=== PATIENT | male | born 1970 | race Caucasian/White ===

== ENCOUNTER 2018-05-18 08:23 | Emergency (ER) | payer OTHER ==
[2018-05-18] MEDS ORDERED: Sodium Chloride 0.9% 1000 ML 1,000 ML IV STA ×2 (08:48→10:17)
[2018-05-18] MEDS ORDERED: Sodium Chloride 0.9% 1000 ML 1,000 ML ONE ×2 (08:56→10:21)
--- NOTE | 2018-05-18 09:03 | ERPHSYRPT ---
- History of Present Illness Time Seen by Provider: 05/18/18 08:35 Source: patient Exam Limitations: clinical condition Patient Subjective Stated Complaint: Headache, chills, general weakness, abdominal pain Triage Nursing Assessment: Pt presents to the ED with complaints of headache, body aches, general weakness, anxiety, abdominal pain, and dizziness. Pt states abdominal pain was first to start, began approximately 1 week ago. No distress noted, skin pwd, pt is A&O x4. Physician History: PATIENT WITH A HISTORY OF ANXIETY, CHRONIC SHOULDER PAIN, AND HYPERTENSION COMPLAINS OF WEAKNESS, DIZZINESS, SHAKES AFTER HIS NORCO AND XANAX RAN OUT 4-5 DAYS AGO. HAS BEEN RELEASED FROM HIS PRIMARY CARE PROVIDER PRACTICE AND HAS BEEN TAKING HIS FRIENDS NORCO AND STREET XANAX OVER THE PAST WEEK. PATIENT HAS NUMEROUS OTHER COMPLAINTS, HEADACHE , ABDOMINAL PAIN, SHOULDER PAIN. DENIES BLURRED VISION, NAUSEA, EMESIS, DIARRHEA, CHEST PAIN, DIAPHORESIS AND PALPITATIONS. Timing/Duration: day(s) Severity: moderate Modifying Factors: Improves With: medication (RAN OUT) Associated Symptoms: weakness Allergies/Adverse Reactions: No Known Drug Allergies Allergy (Verified 05/18/18 08:33) Hx Tetanus, Diphtheria Vaccination/Date Given: Yes Hx Influenza Vaccination/Date Given: Yes Hx Pneumococcal Vaccination/Date Given: No Immunizations Up to Date: Yes - Review of Systems Constitutional: Weakness, No Fever, No Chills Eyes: No Symptoms Ears, Nose, & Throat: No Symptoms Respiratory: No Symptoms, No Cough, No Dyspnea Cardiac: No Symptoms, No Chest Pain, No Edema, No Syncope Abdominal/Gastrointestinal: Abdominal Pain, No Nausea, No Vomiting, No Diarrhea Genitourinary Symptoms: No Dysuria Musculoskeletal: No Back Pain, No Neck Pain Skin: No Rash Neurological: Dizziness, Other (ANXIETY), No Focal Weakness, No Sensory Changes Psychological: No Symptoms Endocrine: No Symptoms All Other Systems: Reviewed and Negative - Past Medical History Pertinent Past Medical History: Yes Neurological History: No Pertinent History ENT History: No Pertinent History Cardiac History: Hypertension Respiratory History: No Pertinent History Endocrine Medical History: No Pertinent History Musculoskeletal History: No Pertinent History GI Medical History: No Pertinent History History: No Pertinent History Psycho-Social History: No Pertinent History Male Reproductive Disorders: No Pertinent History - Past Surgical History Past Surgical History: No Neuro Surgical History: No Pertinent History Cardiac: No Pertinent History Respiratory: No Pertinent History Gastrointestinal: No Pertinent History Genitourinary: No Pertinent History Musculoskeletal: No Pertinent History Male Surgical History: No Pertinent History - Social History Smoking Status: Current every day smoker How long have you smoked: 16 years Exposure to second hand smoke: Yes Drug Use: narcotics Patient Lives Alone: No - Nursing Vital Signs Nursing Vital Signs: Initial Vital Signs Temperature 98.5 F 05/18/18 08:27 Pulse Rate 115 H 05/18/18 08:27 Respiratory Rate 16 05/18/18 08:27 Blood Pressure 145/98 05/18/18 08:27 O2 Sat by Pulse Oximetry 95 05/18/18 08:27 Pain Scale Pain Intensity 0 - Physical Exam General Appearance: no apparent distress, alert, anxiety, other (ALERT AND APPROPRIATE APPEARS IN NO DISTRESS) Eye Exam: PERRL/EOMI, eyes nml inspection Ears, Nose, Throat Exam: normal ENT inspection, TMs normal, pharynx normal, moist mucous membranes Neck Exam: normal inspection, non-tender, supple, full range of motion Respiratory Exam: normal breath sounds, lungs clear, No respiratory distress Cardiovascular Exam: regular rate/rhythm, normal heart sounds, normal peripheral pulses, tachycardia Gastrointestinal/Abdomen Exam: soft, normal bowel sounds, No tenderness, No mass Back Exam: normal inspection, normal range of motion, No CVA tenderness, No vertebral tenderness Extremity Exam: normal inspection, normal range of motion, pelvis stable Neurologic Exam: alert, oriented x 3, cooperative, normal mood/affect, nml cerebellar function, nml station & gait, sensation nml, No motor deficits Skin Exam: normal color, warm, dry, No rash Lymphatic Exam: No adenopathy SpO2 Interpretation: normal SpO2: 95 Oxygen Delivery: Room Air - Course EKG Interpreted by Me: RATE, Sinus Rhythm (RATE OF 94, NO ECTOPY OR ISCHEMIC CHANGES), NORMAL AXIS Ordered Tests: Active Orders 24 hr Category Date Time Status EKG-ER Only STAT Care 05/18/18 08:48 Active BMP Stat Lab 05/18/18 09:00 Completed CBC W DIFF Stat Lab 05/18/18 09:00 Completed Urine Triage Profile Stat Lab 05/18/18 11:30 Completed Medication Summary Discontinued Medications Generic Name Dose Route Start Last Admin Trade Name Freq PRN Reason Stop Dose Admin Hydroxyzine HCl 25 mg 05/18/18 10:30 05/18/18 10:33 Atarax 25 Mg PO 05/18/18 10:31 25 mg STAT ONE Administration Hydroxyzine HCl Confirm 05/18/18 10:32 Atarax 25 Mg Administered 05/18/18 10:33 Dose 25 mg .ROUTE .STK-MED ONE Sodium Chloride 1,000 mls @ 999 mls/hr 05/18/18 08:48 05/18/18 08:57 Sodium Chloride 0.9% 1000 Ml IV 05/18/18 09:48 999 mls/hr .Q1H1M STA Administration Sodium Chloride Confirm 05/18/18 08:56 Sodium Chloride 0.9% 1000 Ml Administered 05/18/18 08:57 Dose 1,000 mls @ ud .ROUTE .STK-MED ONE Sodium Chloride 1,000 mls @ 999 mls/hr 05/18/18 10:17 05/18/18 10:24 Sodium Chloride 0.9% 1000 Ml IV 05/18/18 11:17 999 mls/hr .Q1H1M STA Administration Sodium Chloride Confirm 05/18/18 10:21 Sodium Chloride 0.9% 1000 Ml Administered 05/18/18 10:22 Dose 1,000 mls @ ud .ROUTE .STK-MED ONE Lab/Rad Data: Laboratory Result Diagrams 05/18/18 09:00 05/18/18 09:00 Laboratory Results 05/18/18 05/18/18 05/18/18 Range/Units 11:30 09:00 09:00 WBC 11.1 H (4.0-10.5) K/mm3 RBC 5.13 (4.1-5.6) M/mm3 Hgb 14.9 (12.5-18.0) gm/dl Hct 45.0 (42-50) % MCV 87.7 (78-100) fl MCH 29.0 (26-32) pg MCHC 33.1 (32-36) g/dl RDW 14.4 H (11.5-14.0) % Plt Count 360 (150-450) K/mm3 MPV 9.5 (6-9.5) fl Gran % 71.7 H (36.0-66.0) % Eos # (Auto) 0.05 (0-0.5) Absolute Lymphs (auto) 2.26 (1.0-4.6) Absolute Monos (auto) 0.75 (0.0-1.3) Lymphocytes % 20.5 L (24.0-44.0) % Monocytes % 6.8 (0.0-12.0) % Eosinophils % 0.5 (0.00-5.0) % Basophils % 0.5 (0.0-0.4) % Absolute Granulocytes 7.93 H (1.4-6.9) Basophils # 0.06 (0-0.4) Sodium 140 (137-145) mmol/L Potassium 3.8 (3.5-5.1) mmol/L Chloride 104 (98-107) mmol/L Carbon Dioxide 26 (22-30) mmol/L Anion Gap 13.5 (5-15) MEQ/L BUN 13 (9-20) mg/dL Creatinine 0.84 (0.66-1.25) mg/dL Estimated GFR > 60.0 ML/MIN Glucose 127 H (74-106) mg/dL Calcium 9.6 (8.4-10.2) mg/dL Urine Opiates Level POSITIVE (NEGATIVE) Ur Methadone NEGATIVE (NEGATIVE) Urine Barbiturates NEGATIVE (NEGATIVE) Ur Phencyclidine (PCP) NEGATIVE (NEGATIVE) Urine Amphetamine NEGATIVE (NEGATIVE) U Benzodiazepine Level NEGATIVE (NEGATIVE) Urine Cocaine NEGATIVE (NEGATIVE) Urine Marijuana (THC) NEGATIVE (NEGATIVE) - Progress Progress: improved Progress Note: 05/18/18 09:04 ADMINISTERED IV NORMAL SALINE 1000ML/HR, ATARAX 25MG ORALLY, THE URINE TRIAGE POSITIVE FOR OPIATES 05/18/18 11:49 Counseled pt/family regarding: lab results, diagnosis, need for follow-up - Departure Time of Disposition: 11:55 Departure Disposition: Home Clinical Impression: MEDICATION WITHDRAWAL, Chronic right shoulder pain Condition: Stable Critical Care Time: No Referrals: VITA ARGUETA MD [ACTIVE STAFF] - Additional Instructions: ATARAX 25MG EVERY 6 HOURS NEEDED FOR ANXIETY. PERCOGESIC EVERY 4 HOURS NEEDED FOR PAIN. OBTAIN A PRIMARY CARE PROVIDER TODAY TO SCHEDULE APPOINTMENT. PERCOGESIC EVERY 4 HOURS NEEDED FOR PAIN. Prescriptions: Hydroxyzine HCl 25 mg [Atarax 25 mg] 25 mg PO Q6H PRN PRN #15 tablet PRN Reason: Anxiety Acetaminophen/Diphenhydramine [Percogesic 325-12.5 mg Tablet] 1 each PO Q4- 6HPRN PRN #15 tablet PRN Reason: Pain
[2018-05-18 09:07] LABS: BASOPHIL % 0.5 % (0.0-0.4); Basophil (Absolute #) 0.06 (0-0.4); Eosinophil % 0.5 % (0.00-5.0); Eosinophil (Absolute #) 0.05 (0-0.5); Granulocyte Absolute (ANC) 7.93 (1.4-6.9); Granulocytes % 71.7 % (36.0-66.0); Hemoglobin 14.9 gm/dl (12.5-18.0); Lymphocyte (Absolute #) 2.26 (1.0-4.6); Lymphocytes % 20.5 % (24.0-44.0); Mean Cell Volume 87.7 fl (78-100); Mean Corpuscular Hgb Concent. 33.1 g/dl (32-36); Mean Platelet Volume 9.5 fl (6-9.5); Monocyte (Absolute #) 0.75 (0.0-1.3); Monocytes % 6.8 % (0.0-12.0); Platelet Count 360 K/mm3 (150-450); Red Blood Count 5.13 M/mm3 (4.1-5.6); Red Cell Distribution Width 14.4 % (11.5-14.0); White Blood Count 11.1 K/mm3 (4.0-10.5)
[2018-05-18 09:34] LABS: ANION GAP 13.5 MEQ/L (5-15); BLOOD UREA NITROGEN 13 mg/dL (9-20); CHLORIDE 104 mmol/L (98-107); Calcium 9.6 mg/dL (8.4-10.2); Carbon Dioxide 26 mmol/L (22-30); Creatinine 1 0.84 mg/dL (0.66-1.25); Glucose 127 mg/dL (74-106); Potassium 3.8 mmol/L (3.5-5.1); SODIUM 140 mmol/L (137-145)
[2018-05-18] MEDS ORDERED: ATARAX 25 MG PO ONE (10:30)
[2018-05-18] MEDS ORDERED: ATARAX 25 MG ONE (10:32)
[2018-05-18 11:44] LABS: Amphetamine,Urine NEGATIVE (NEGATIVE); Barbiturate,Urine NEGATIVE (NEGATIVE); Benzodiazepine,Urine NEGATIVE (NEGATIVE); Cocaine,Urine NEGATIVE (NEGATIVE); Methadone,Urine NEGATIVE (NEGATIVE); Opiate,Urine POSITIVE (NEGATIVE); PCP,Urine NEGATIVE (NEGATIVE); THC,Urine NEGATIVE (NEGATIVE)
[2018-05-18 12:02] VITALS: BP 118/70; PULSE 60; O2SAT 98
== END 2018-05-18 12:03 | disposition home or self-care (01) ==
LOC: ED 08:23
DX: F15.93 Other stimulant use, unspecified with withdrawal (principal); M25.511 Pain in right shoulder; R53.1 Weakness; R42 Dizziness and giddiness; R51 Headache; R10.9 Unspecified abdominal pain
CPT/HCPCS: 36415; 80048; 80307; 85025; 93005; 96360; 99284; A9270-GY

== ENCOUNTER 2019-07-29 13:57 | Emergency (ER) | payer OTHER ==
[2019-07-29 14:13] VITALS: BP 116/73; PULSE 90; O2SAT 95
[2019-07-29] MEDS ORDERED: solu-CORTEF 250MG IV STA (14:26)
[2019-07-29] MEDS ORDERED: BENADRYL 50 MG/ML IM ONE (14:27)
[2019-07-29] MEDS ORDERED: solu-CORTEF 250MG IM ONE (14:29)
--- NOTE | 2019-07-29 14:34 | ERPHSYRPT ---
- History of Present Illness Time Seen by Provider: 07/29/19 14:29 Source: patient Exam Limitations: no limitations Patient Subjective Stated Complaint: Pt began swelling in bilateral eyes about 2 weeks ago and thinks that gnats bit him, has hives on right upper side of back , lips swollen, states that he has been hoarse and has a slight sore throat, denies swallowing or breathing difficulty Triage Nursing Assessment: Pt walked into the ER, vitals wnl, pulses normal, denies pain, doesn't appear to be in any distress. Physician History: Pt began swelling in bilateral eyes about 2 weeks ago and thinks that gnats bit him, has hives on right upper side of back, lips swollen, states that he has been hoarse and has a slight sore throat, denies swallowing or breathing difficulty, Unable to pinpoint the allergic cause Timing/Duration: week(s) Associated Symptoms: rash, other (lip swelling), No shortness of breath, No headaches Allergies/Adverse Reactions: No Known Drug Allergies Allergy (Verified 07/29/19 14:13) Hx Tetanus, Diphtheria Vaccination/Date Given: Yes Hx Influenza Vaccination/Date Given: Yes Hx Pneumococcal Vaccination/Date Given: No - Review of Systems Constitutional: No Fever, No Chills Eyes: No Symptoms Ears, Nose, & Throat: Throat Pain, Other (lip swelling) Respiratory: No Cough, No Dyspnea Cardiac: No Chest Pain, No Edema, No Syncope Abdominal/Gastrointestinal: No Abdominal Pain, No Nausea, No Vomiting, No Diarrhea Genitourinary Symptoms: No Dysuria Musculoskeletal: No Back Pain, No Neck Pain Skin: Rash Neurological: No Dizziness, No Focal Weakness, No Sensory Changes Psychological: No Symptoms Endocrine: No Symptoms All Other Systems: Reviewed and Negative - Past Medical History Pertinent Past Medical History: Yes Neurological History: No Pertinent History ENT History: No Pertinent History Cardiac History: Hypertension Respiratory History: No Pertinent History Endocrine Medical History: No Pertinent History Musculoskeletal History: No Pertinent History GI Medical History: No Pertinent History History: No Pertinent History Psycho-Social History: No Pertinent History Male Reproductive Disorders: No Pertinent History - Past Surgical History Past Surgical History: No Neuro Surgical History: No Pertinent History Cardiac: No Pertinent History Respiratory: No Pertinent History Gastrointestinal: No Pertinent History Genitourinary: No Pertinent History Musculoskeletal: No Pertinent History Male Surgical History: No Pertinent History - Social History Smoking Status: Current every day smoker How long have you smoked: 16 years Exposure to second hand smoke: Yes Drug Use: none Patient Lives Alone: No - Nursing Vital Signs Nursing Vital Signs: Initial Vital Signs Temperature 97.7 F 07/29/19 14:03 Pulse Rate 90 07/29/19 14:03 Blood Pressure 116/73 07/29/19 14:03 O2 Sat by Pulse Oximetry 95 07/29/19 14:03 Pain Scale Pain Intensity 0 - Physical Exam General Appearance: no apparent distress, alert Eye Exam: PERRL/EOMI, eyes nml inspection Ears, Nose, Throat Exam: normal ENT inspection, TMs normal, pharynx normal, moist mucous membranes Neck Exam: normal inspection, non-tender, supple, full range of motion Respiratory Exam: normal breath sounds, lungs clear, No respiratory distress Cardiovascular Exam: regular rate/rhythm, normal heart sounds, normal peripheral pulses Gastrointestinal/Abdomen Exam: soft, normal bowel sounds, No tenderness, No mass Back Exam: normal inspection, normal range of motion, No CVA tenderness, No vertebral tenderness Extremity Exam: normal inspection, normal range of motion, pelvis stable Neurologic Exam: alert, oriented x 3, cooperative, normal mood/affect, nml cerebellar function, nml station & gait, sensation nml, No motor deficits Skin Exam: normal color, warm, dry, No rash Lymphatic Exam: No adenopathy SpO2: 95 - Course Nursing assessment & vital signs reviewed: Yes Ordered Tests: Medication Summary Generic Name Dose Route Start Last Admin Trade Name Freq PRN Reason Stop Dose Admin Hydrocortisone Sodium Succinate 250 mg 07/29/19 14:29 Solu-Cortef 250mg IM 07/29/19 14:30 STAT ONE Discontinued Medications Generic Name Dose Route Start Last Admin Trade Name Freq PRN Reason Stop Dose Admin Diphenhydramine HCl 25 mg 07/29/19 14:27 Benadryl 50 Mg/Ml IM 07/29/19 14:28 STAT ONE Hydrocortisone Sodium Succinate 250 mg 07/29/19 14:26 Solu-Cortef 250mg IV 07/29/19 14:27 Q6H STA - Progress Progress: improved Counseled pt/family regarding: diagnosis, need for follow-up - Departure Departure Disposition: Home Clinical Impression: Contact allergic reaction Condition: Stable Critical Care Time: No Referrals: ASHLEY ETE [Primary Care Provider] - Instructions: Hives, Angioedema, Skin Rash (DC) Additional Instructions: ALLERGIC REACTION 1. There are several different reasons for the cause of an allergic reaction. If you are aware of a trigger, continue to avoid the problem. 2. If at any time you experience any of these signs or symptoms, you should seek medical attention immediately: A. Sudden onset of rash B. Wheezing C. Shortness of breath D. Thick tongue E. Dizziness 3. If you experience an allergic reaction and are treated in the emergency department, you should follow up with your family physician in order to determine how you will need to handle your allergy. HILDA SALVADOR was seen on 07/29/19 n the Emergency Room. At that time you were treated for an emergent condition, during your visit Laboratory, Radiology and/or other procedures may have been ordered. It is very important that you follow-up with your Primary Care Physician ASHLEY TEE within the next 24-48 hours to review your Emergency Room visit and the final results of testing that was ordered. Some test results such as Urine Cultures, Blood Cultures, and other cultures if ordered will not be finalized for 24-48 hours. If you do not have a Primary Care Provider please call the medical records department at [phone] ext [phone] to obtain a copy of your results or you may sign into our patient portal to obtain these results by visiting us @ [email or web address] and completing the following steps: 1. Click on the Patient Portal link 2. Click the Patient Self Enrollment Link to complete the enrollment form and entering your 3. Once the enrollment form is completed you will receive an email with a temporary ID and password at the email address you provided. 4. Next choose a user name and password. Your user name must be at least 4 characters long and your password must be at least 4 characters long. 5. Choose a security question from the list and provide your answer to the question. If you already have signed into the Health Portal you may access your Health Care Information 13/06 by the following steps: 1. Login to our website @ [email or web address] Plan HILDA SALVADOR was seen on 07/29/19 in the Emergency Room. The patient was counseled regarding Diagnosis,Lab results, Imaging studies, need for follow up and when to return to the Emergency Room. Prescriptions given: Discharge Note I have spoken with the patient and/or caregivers. I have explained the patient' s condition, diagnosis and treatment plan based on the information available to me at this time. I have answered the patient's and/or caregiver's questions and addressed any concerns. The patient and/or caregivers have as good understanding of the patient's diagnosis, condition and treatment plan as can be expected at this point. The vital signs have been stable. The patient's condition is stable and appropriate for discharge from the emergency department. The patient will pursue further outpatient evaluation with the primary care physician or other designated or consulting physician as outlined in the discharge instructions. The patient and/or caregivers are agreeable to this plan of care and follow-up instructions have been explained in detail. The patient and/or caregivers have received these instruction. The patient/and or caregivers are aware that any significant change in condition or worsening of symptoms should prompt an immediate return to this or the closest emergency department or call 911. 2. Enter your original user name and password. FAQS The [facility] Health Portal is an online tool that contains your Lab Results, Radiology Reports, Visit History, Discharge Instructions and Health Summary Lab and Radiology Results will not be available for 72 hours on the portal. The Portal is a secure site, passwords are encryted and URLs are re-written so they cannot be copied and pasted. You and authorized family members are the only ones who can access your Portal. Also there is a timeout feature that protects your information if you leave the Portal page open. If you have technical difficulty please use the Contact Us link on the page this will allow you to submit any questions you have regarding the Portal or you may contact the Medical Record Department at [phone] ext [phone]. Prescriptions: Methylprednisolone Packet [Medrol Dosepack] 4 mg PO UD #30 packet
[2019-07-29] MEDS ORDERED: BENADRYL 50 MG/ML ONE (14:41)
[2019-07-29] MEDS ORDERED: solu-CORTEF 250MG ONE (14:41)
== END 2019-07-29 15:21 | disposition home or self-care (01) ==
LOC: ED 13:57
DX: L23.9 Allergic contact dermatitis, unspecified cause (principal)
CPT/HCPCS: 96372; 99284; J1200; J1720

== ENCOUNTER 2021-05-26 07:25 | Emergency (ER) | payer OTHER ==
--- NOTE | 2021-05-26 07:39 | ERPHSYRPT ---
- History of Present Illness Time Seen by Provider: 05/26/21 07:39 Source: patient, family Exam Limitations: no limitations Physician History: This is a 50-year-old overweight white male has a history of hypertension anxiety who has not been on his medications for quite some time and presents with anxiety, right lower quadrant abdominal pain and diarrhea. Patient's mo ther has a history of diverticulitis. Patient denies fever. He denies cough, he denies shortness of breath, he denies chest pain. Timing/Duration: other (Persistent) Severity: moderate Associated Symptoms: abdominal pain, other (Diarrhea) Allergies/Adverse Reactions: No Known Drug Allergies Allergy (Verified 05/26/21 07:47) Hx Tetanus, Diphtheria Vaccination/Date Given: Yes Hx Influenza Vaccination/Date Given: Yes Hx Pneumococcal Vaccination/Date Given: No Travel Risk - International Travel Have you traveled outside of the country in past 3 weeks: No - Coronavirus Screening Are you exhibiting any of the following symptoms?: No Close contact with a COVID-19 positive Pt in past 14-21 Days: No - Review of Systems Constitutional: No Symptoms Eyes: No Symptoms Ears, Nose, & Throat: No Symptoms Respiratory: No Symptoms Cardiac: No Symptoms Abdominal/Gastrointestinal: Abdominal Pain, Diarrhea Genitourinary Symptoms: No Symptoms Musculoskeletal: No Symptoms Skin: No Symptoms Neurological: No Symptoms Psychological: No Symptoms Endocrine: No Symptoms Hematologic/Lymphatic: No Symptoms Immunological/Allergic: No Symptoms All Other Systems: Reviewed and Negative - Past Medical History Pertinent Past Medical History: Yes Neurological History: No Pertinent History ENT History: No Pertinent History Cardiac History: Hypertension Respiratory History: No Pertinent History Endocrine Medical History: No Pertinent History Musculoskeletal History: No Pertinent History GI Medical History: No Pertinent History History: No Pertinent History Psycho-Social History: No Pertinent History Male Reproductive Disorders: No Pertinent History - Past Surgical History Past Surgical History: No Neuro Surgical History: No Pertinent History Cardiac: No Pertinent History Respiratory: No Pertinent History Gastrointestinal: No Pertinent History Genitourinary: No Pertinent History Musculoskeletal: No Pertinent History Male Surgical History: No Pertinent History - Social History Smoking Status: Current every day smoker How long have you smoked: 16 years Exposure to second hand smoke: Yes Drug Use: none Patient Lives Alone: No - Nursing Vital Signs Nursing Vital Signs: Initial Vital Signs Temperature 97.0 F 05/26/21 07:35 Pulse Rate 88 05/26/21 07:35 Respiratory Rate 18 05/26/21 07:35 Blood Pressure 166/99 05/26/21 07:35 O2 Sat by Pulse Oximetry 97 05/26/21 07:35 Pain Scale Pain Intensity 8 - Physical Exam General Appearance: no apparent distress, alert, anxiety, obese Eye Exam: PERRL/EOMI, eyes nml inspection Ears, Nose, Throat Exam: normal ENT inspection, moist mucous membranes Neck Exam: normal inspection, non-tender, supple, full range of motion Respiratory Exam: normal breath sounds, lungs clear, airway intact, No chest tenderness, No respiratory distress Cardiovascular Exam: regular rate/rhythm, normal heart sounds, normal peripheral pulses Gastrointestinal/Abdomen Exam: soft, normal bowel sounds, tenderness (Mild right lower quadrant), guarding, No rebound Rectal Exam: not done Back Exam: normal inspection, normal range of motion, No CVA tenderness, No vertebral tenderness Extremity Exam: normal inspection, normal range of motion, pelvis stable Neurologic Exam: alert, oriented x 3, cooperative, patient services representative II-XII nml as tested, nml cerebellar function, nml station & gait, sensation nml Skin Exam: normal color, warm, dry Lymphatic Exam: No adenopathy SpO2 Interpretation: normal O2 Delivery: Room Air - Course Nursing assessment & vital signs reviewed: Yes Ordered Tests: Active Orders 24 hr Category Date Time Status IV Insertion STAT Care 05/26/21 07:54 Active ABDOMEN AND PELVIS W/0 CONTRAS [CT] Stat Exams 05/26/21 07:54 Completed AMYLASE Stat Lab 05/26/21 07:40 Completed CBC W DIFF Stat Lab 05/26/21 07:54 Completed CMP Stat Lab 05/26/21 07:40 Completed CULTURE,URINE Stat Lab 05/26/21 10:10 Received LIPASE Stat Lab 05/26/21 07:40 Completed Lactic Acid Stat Lab 05/26/21 07:54 Completed UA W/RFX UR CULTURE Stat Lab 05/26/21 10:10 Completed Medication Summary Generic Name Dose Route Start Last Admin Trade Name Freq PRN Reason Stop Dose Admin Fluconazole 150 mg 05/26/21 10:35 Diflucan 100 Mg PO 05/26/21 10:36 STAT ONE Ceftriaxone Sodium/Dextrose 1 g in 50 mls @ 100 mls/hr 05/26/21 10:35 Rocephin 1 Gm-D5w 50 Ml Bag IV 07/06/21 11:04 STAT STA Discontinued Medications Generic Name Dose Route Start Last Admin Trade Name Biju PRN Reason Stop Dose Admin Sodium Chloride 1,000 mls @ 999 mls/hr 05/26/21 07:54 05/26/21 08:14 Sodium Chloride 0.9% 1000 Ml IV 05/26/21 08:54 999 mls/hr .[id number] STA Administration Sodium Chloride Confirm 05/26/21 08:03 Sodium Chloride 0.9% 1000 Ml Administered 05/26/21 08:04 Dose 1,000 mls @ ud .ROUTE .STK-MED ONE Lorazepam 1 mg 05/26/21 10:24 Ativan 2 Mg/1 Ml Vial IV 05/26/21 10:25 STAT ONE Lab/Rad Data: Laboratory Result Diagrams 05/26/21 07:54 05/26/21 07:40 Laboratory Results 05/26/21 05/26/21 05/26/21 Range/Units 10:10 07:54 07:54 WBC 13.1 H (4.0-10.5) K/mm3 RBC 5.63 H (4.1-5.6) M/mm3 Hgb 15.7 (12.5-18.0) gm/dl Hct 49.2 (42-50) % MCV 87.4 (78-100) fl MCH 27.9 (26-32) pg MCHC 31.9 L (32-36) g/dl RDW 14.4 H (11.5-14.0) % Plt Count 360 (150-450) K/mm3 MPV 10.1 (7.5-11.0) fl Gran % 70.2 H (36.0-66.0) % Eos # (Auto) 0.11 (0-0.5) Absolute Lymphs (auto) 2.78 (1.0-4.6) Absolute Monos (auto) 0.94 (0.0-1.3) Lymphocytes % 21.3 L (24.0-44.0) % Monocytes % 7.2 (0.0-12.0) % Eosinophils % 0.8 (0.00-5.0) % Basophils % 0.5 (0.0-0.4) % Absolute Granulocytes 9.18 H (1.4-6.9) Basophils # 0.06 (0-0.4) Sodium (137-145) mmol/L Potassium (3.5-5.1) mmol/L Chloride (98-107) mmol/L Carbon Dioxide (22-30) mmol/L Anion Gap (5-15) MEQ/L BUN (9-20) mg/dL Creatinine (0.66-1.25) mg/dL Estimated GFR ML/MIN Glucose (74-106) mg/dL Lactic Acid 1.2 (0.4-2.0) Calcium (8.4-10.2) mg/dL Total Bilirubin (0.2-1.3) mg/dL AST (17-59) U/L ALT (0-50) U/L Alkaline Phosphatase (38-126) U/L Serum Total Protein (6.3-8.2) g/dL Albumin (3.5-5.0) g/dL Amylase (30-110) U/L Lipase (23-300) U/L Urine Color YELLOW (YELLOW) Urine Appearance SLIGHTLY CLOUDY (CLEAR) Urine pH 6.0 (5-6) Ur Specific [place] 1.013 (1.005-1.025) Urine Protein NEGATIVE (Negative) Urine Ketones NEGATIVE (NEGATIVE) Urine Blood NEGATIVE (0-5) Ford/ul Urine Nitrite POSITIVE (NEGATIVE) Urine Bilirubin NEGATIVE (NEGATIVE) Urine Urobilinogen NEGATIVE (0-1) mg/dL Ur Leukocyte Esterase LARGE (NEGATIVE) Urine WBC (Auto) 51-100 (0-5) /HPF Urine RBC (Auto) 6-10 (0-2) /HPF U Epithel Cells (Auto) NONE (FEW) /HPF Urine Bacteria (Auto) FEW (NEGATIVE) /HPF Urine Mucus (Auto) SLIGHT (NEGATIVE) /HPF Urine Yeast (Budding) Few (NEGATIVE) /HPF Urine Culture Reflexed YES (NO) Urine Glucose NEGATIVE (NEGATIVE) mg/dL 05/26/21 Range/Units 07:40 WBC (4.0-10.5) K/mm3 RBC (4.1-5.6) M/mm3 Hgb (12.5-18.0) gm/dl Hct (42-50) % MCV (78-100) fl MCH (26-32) pg MCHC (32-36) g/dl RDW (11.5-14.0) % Plt Count (150-450) K/mm3 MPV (7.5-11.0) fl Gran % (36.0-66.0) % Eos # (Auto) (0-0.5) Absolute Lymphs (auto) (1.0-4.6) Absolute Monos (auto) (0.0-1.3) Lymphocytes % (24.0-44.0) % Monocytes % (0.0-12.0) % Eosinophils % (0.00-5.0) % Basophils % (0.0-0.4) % Absolute Granulocytes (1.4-6.9) Basophils # (0-0.4) Sodium 138 (137-145) mmol/L Potassium 3.6 (3.5-5.1) mmol/L Chloride 102 (98-107) mmol/L Carbon Dioxide 26 (22-30) mmol/L Anion Gap 14.2 (5-15) MEQ/L BUN 10 (9-20) mg/dL Creatinine 0.79 (0.66-1.25) mg/dL Estimated GFR > 60.0 ML/MIN Glucose 117 H (74-106) mg/dL Lactic Acid (0.4-2.0) Calcium 10.0 (8.4-10.2) mg/dL Total Bilirubin 0.60 (0.2-1.3) mg/dL AST 25 (17-59) U/L ALT 36 (0-50) U/L Alkaline Phosphatase 124 (38-126) U/L Serum Total Protein 7.9 (6.3-8.2) g/dL Albumin 4.4 (3.5-5.0) g/dL Amylase 45 (30-110) U/L Lipase 70 (23-300) U/L Urine Color (YELLOW) Urine Appearance (CLEAR) Urine pH (5-6) Ur Specific [place] (1.005-1.025) Urine Protein (Negative) Urine Ketones (NEGATIVE) Urine Blood (0-5) Ford/ul Urine Nitrite (NEGATIVE) Urine Bilirubin (NEGATIVE) Urine Urobilinogen (0-1) mg/dL Ur Leukocyte Esterase (NEGATIVE) Urine WBC (Auto) (0-5) /HPF Urine RBC (Auto) (0-2) /HPF U Epithel Cells (Auto) (FEW) /HPF Urine Bacteria (Auto) (NEGATIVE) /HPF Urine Mucus (Auto) (NEGATIVE) /HPF Urine Yeast (Budding) (NEGATIVE) /HPF Urine Culture Reflexed (NO) Urine Glucose (NEGATIVE) mg/dL - Progress Progress: improved, pain not gone completely, re-examined Progress Note: 05/26/21 09:54 CAT scan of the abdomen and pelvis without contrast shows no acute intra- abdominal or intrapelvic findings 05/26/21 09:55 Counseled pt/family regarding: lab results, diagnosis, need for follow-up, rad results - Departure Departure Disposition: Home Clinical Impression: Chronic hypertension, UTI (urinary tract infection), Anxiety Condition: Stable Critical Care Time: No Referrals: ASHLEY TEE [NON-STAFF PHY W/O PRIVILEGES] - Additional Instructions: Drink plenty of fluids. Take your medication as prescribed follow-up with your primary care physician for further management. Prescriptions: Ciprofloxacin [Cipro 500 MG] 500 mg PO BID #14 tablet
[2021-05-26] MEDS ORDERED: Sodium Chloride 0.9% 1000 ML 1,000 ML IV STA (07:54)
[2021-05-26] MEDS ORDERED: Sodium Chloride 0.9% 1000 ML 1,000 ML ONE (08:03)
[2021-05-26 08:11] LABS: Absolute Neutrophil Ct (ANC) 9.18 (1.4-6.9); BASOPHIL % 0.5 % (0.0-0.4); Basophil (Absolute #) 0.06 (0-0.4); Eosinophil % 0.8 % (0.00-5.0); Eosinophil (Absolute #) 0.11 (0-0.5); Hematocrit 49.2 % (42-50); Hemoglobin 15.7 gm/dl (12.5-18.0); Lymphocyte (Absolute #) 2.78 (1.0-4.6); Lymphocytes % 21.3 % (24.0-44.0); Mean Cell Volume 87.4 fl (78-100); Mean Corpuscular Hemoglobin 27.9 pg (26-32); Mean Corpuscular Hgb Concent. 31.9 g/dl (32-36); Mean Platelet Volume 10.1 fl (7.5-11.0); Monocyte (Absolute #) 0.94 (0.0-1.3); Monocytes % 7.2 % (0.0-12.0); Neutrophil % 70.2 % (36.0-66.0); Platelet Count 360 K/mm3 (150-450); Red Blood Count 5.63 M/mm3 (4.1-5.6); Red Cell Distribution Width 14.4 % (11.5-14.0); White Blood Count 13.1 K/mm3 (4.0-10.5)
[2021-05-26 08:21] LABS: ALBUMIN 4.4 g/dL (3.5-5.0); ALKALINE PHOSPHATASE 124 U/L (38-126); AMYLASE 45 U/L (30-110); ANION GAP 14.2 MEQ/L (5-15); BLOOD UREA NITROGEN 10 mg/dL (9-20); CHLORIDE 102 mmol/L (98-107); Carbon Dioxide 26 mmol/L (22-30); Creatinine 1 0.79 mg/dL (0.66-1.25); EST GLOMERULAR FILTRATION RATE > 60.0 ML/MIN; Glucose 117 mg/dL (74-106); LIPASE 70 U/L (23-300); Potassium 3.6 mmol/L (3.5-5.1); SGOT/AST 25 U/L (17-59); SGPT/ALT 36 U/L (0-50); SODIUM 138 mmol/L (137-145); Total Protein 7.9 g/dL (6.3-8.2)
--- NOTE | 2021-05-26 09:34 | XRAY ---
Indication: Bilateral abdomen pain. Nausea and diarrhea. Multiple contiguous axial images obtained through the abdomen and pelvis without contrast. Comparison: None Lung bases demonstrates mild bibasilar subsegmental atelectasis/scarring. No infiltrate or effusion. Heart not enlarged. Noncontrasted stomach and bowel loops appear nonobstructed. A few radiopacities throughout the small bowel loops presumed ingested medication/bismuth.. Normal-appearing appendix with incidental 4 mm appendicolith near the base. Minimal scattered colonic diverticulosis. 9 mm left mid renal exophytic cyst. No free fluid/air. Remaining liver, gallbladder, pancreas, spleen, adrenal glands, kidneys, ureters, and bladder are unremarkable for noncontrast exam. Minimal aortic calcifications without AAA. Osseous structures intact with mild/moderate degenerative changes throughout the thoracolumbar spine. No ventral or inguinal hernias. Impression: 1. Minimal colonic diverticulosis, tiny appendicolith, subcentimeter left renal cyst, and chronic bony findings. 2. Remaining CT abdomen/pelvis without contrast exam is negative.
[2021-05-26] MEDS ORDERED: Ativan 2 MG/1 ML VIAL IV ONE (10:24)
[2021-05-26 10:26] LABS: Appearance SLIGHTLY CLOUDY (CLEAR); Bacteria FEW /HPF (NEGATIVE); Bilirubin NEGATIVE (NEGATIVE); Blood NEGATIVE Ery/ul (0-5); Glucose NEGATIVE (NEGATIVE); Ketones NEGATIVE (NEGATIVE); Leukocyte Esterase LARGE (NEGATIVE); Mucus SLIGHT /HPF (NEGATIVE); Nitrite POSITIVE (NEGATIVE); Protein,Urine Dip NEGATIVE (Negative); Specific Gravity 1.013 (1.005-1.025); Urobilinogen NEGATIVE mg/dL (0-1); WBC 51-100 /HPF (0-5)
[2021-05-26 10:27] LABS: Budding Yeast Few /HPF (NEGATIVE)
[2021-05-26] MEDS ORDERED: Diflucan 100 MG PO ONE (10:35)
[2021-05-26] MEDS ORDERED: ROCEPHIN 1 Gm-D5w 50 ml Bag** 1 G/50 ML IVPB IV STA (10:35)
[2021-05-26] MEDS ORDERED: ROCEPHIN 1 Gm-D5w 50 ml Bag** 1 G/50 ML IVPB IV ONE (10:40)
[2021-05-26] MEDS ORDERED: Ativan 2 MG/1 ML VIAL ONE (10:40)
[2021-05-26 11:07] VITALS: BP 137/84; PULSE 80; O2SAT 97
== END 2021-05-26 11:13 | disposition home or self-care (01) ==
LOC: ED 07:25
DX: I10 Essential (primary) hypertension (principal); N39.0 Urinary tract infection, site not specified; F41.9 Anxiety disorder, unspecified; R10.31 Right lower quadrant pain; R19.7 Diarrhea, unspecified
CPT/HCPCS: 36415; 74176; 80053; 81001; 82150; 83605; 83690; 85025; 87077; 87086; 96374; 99284; J0696; J2060; A9270-GY

== ENCOUNTER 2022-10-21 17:27 | Emergency (ER) | payer OTHER ==
[2022-10-21] MEDS ORDERED: TORAdol 30 mg Injection IM ONE (19:17)
[2022-10-21] MEDS ORDERED: TORAdol 30 mg Injection IV ONE (19:19)
[2022-10-21] MEDS ORDERED: TORAdol 30 mg Injection ONE (19:20)
[2022-10-21 19:27] VITALS: BP 111/60
[2022-10-21 19:40] LABS: Bacteria FEW /HPF (NEGATIVE); Mucus MODERATE /HPF (NEGATIVE); WBC >100 /HPF (0-5)
[2022-10-21 19:44] LABS: Appearance TURBID (CLEAR); Bilirubin NEGATIVE (NEGATIVE); Glucose NEGATIVE (NEGATIVE); Ketones NEGATIVE (NEGATIVE); Ph 5.5 (5-6); Protein,Urine Dip NEGATIVE (Negative); RBC SMALL Ery/ul (0-5); Specific Gravity 1.025 (1.005-1.025); Urobilinogen 0.2 mg/dL (0-1)
[2022-10-21 19:45] LABS: Dipstick done @ ? MAIN LAB; Nitrite POSITIVE (NEGATIVE); Urine Cultured Indicated? YES
[2022-10-21] MEDS ORDERED: Rocephin 1000 MG INJ IM ONE (20:49)
[2022-10-21] MEDS ORDERED: ROCEPHIN 1 Gm-D5w 50 ml Bag** 1 G/50 ML IVPB IV ONE (20:53)
[2022-10-21] MEDS ORDERED: Vibramycin 100 MG ONE (20:53)
[2022-10-21] MEDS ORDERED: ROCEPHIN 1 Gm-D5w 50 ml Bag** 1 G/50 ML IVPB IV STA (20:54)
[2022-10-21 21:03] LABS: CHLAMYDIA DNA NOT DETECTED (NEGATIVE); GC DNA Probe NOT DETECTED (NEGATIVE)
--- NOTE | 2022-10-21 21:18 | XRAY ---
Exam: Testicular ultrasound from 10/21/2022. Comparison: [None.] Indication: 51-year-old male with right scrotal and groin pain. Findings: There is thickening of the right scrotal wall. The right testicle measures 3.3 cm x 2.5 cm x 2.4 cm. No testicular mass is seen. There appears to be some echogenic fluid external to the right testicle which may be secondary to inflammation. The right testicle reveals marked increased color blood flow. The head of the right epididymis measures 1.9 cm x 1.4 cm x 1.6 cm. it also demonstrates significant increased color blood flow. The findings are most consistent with marked epididymo-orchitis. The left testicle measures 3.4 cm x 2.4 cm x 1.8 cm. It demonstrates a normal oval shape uniform echogenicity. No testicular mass is seen. Color blood flow within the left testicle appears unremarkable. Incidentally, there appears to be a small 3 mm x 3 mm x 2 mm appendix testis adjacent to the left testicle. The head of the left epididymis measures 1.4 cm x 1.5 cm x 1.25 cm. It also displays normal color blood flow. There are several very small cysts seen within the left epididymal head, the largest measuring 2 mm x 3 mm x 3 mm. Impression: 1. There is no evidence of testicular torsion or testicular mass. 2. There is marked increased color blood flow within the right testicle and head of the right epididymis consistent with marked right-sided epididymo-orchitis. 3. In addition, there is both some right scrotal wall thickening, as well as a right-sided hydrocele, the latter containing some echogenic material within it which may be secondary to inflammation. 4. Incidental appendix testis on the left and several tiny left epididymal head cysts, the largest measuring 3 mm in diameter.
[2022-10-21 21:40] VITALS: PULSE 84
[2022-10-21 21:57] VITALS: O2SAT 94
--- NOTE | 2022-10-21 21:57 | ERPHSYRPT ---
- History of Present Illness Time Seen by Provider: 10/21/22 21:37 Exam Limitations: no limitations Patient Subjective Stated Complaint: Pt to ER with complaints of testicular pain/suprapubic pain/groin pain since tuesday. pt states he feels like he "smashed" one of his testicles when he sat down. Triage Nursing Assessment: Pt to ER with complaints of testicular pain/groin pain since tuesday. pt states it hurts to walk. pt is ambulatory. skin pwd. upon palpation, testicle seemed firm. had pain with palpation. urinating normal. Physician History: Patient is a 51-year-old male presents emergency department for evaluation of right testicular pain. Patient approximately 2 days ago. Patient also experiencing suprapubic tenderness. No trauma. No fever. Mild dysuria and urinary frequency. Symptoms are mild to moderate in intensity. Patient states he is a diabetic. Patient denies history of the same. He voices no other complaints or concerns at this time. Timing/Duration: day(s) (2 days) Severity: moderate Modifying Factors: Improves With: other (Palpation/movement) Associated Symptoms: denies symptoms Allergies/Adverse Reactions: No Known Drug Allergies Allergy (Verified 10/21/22 18:15) Home Medications: Atorvastatin Calcium [Lipitor] 10 mg PO DAILY 10/21/22 [History] Clonidine HCl 0.1 mg [Clonidine 0.1 mg Tablet] 0.1 mg PO DAILY 10/21/22 [History] Duloxetine HCl 30 mg [Cymbalta 30 MG Capsule] 60 mg PO DAILY 10/21/22 [History] Lisinopril 10 mg [Zestril 10 MG] 10 mg PO DAILY 10/21/22 [History] Metformin HCl 500 mg [Glucophage 500 MG] 1,000 mg PO DAILY 10/21/22 [History] clonazePAM [Clonazepam] 1 mg PO BID 10/21/22 [History] Hx Tetanus, Diphtheria Vaccination/Date Given: Yes Hx Influenza Vaccination/Date Given: Yes Hx Pneumococcal Vaccination/Date Given: No Travel Risk - International Travel Have you traveled outside of the country in past 3 weeks: No - Coronavirus Screening Are you exhibiting any of the following symptoms?: No Close contact with a COVID-19 positive Pt in past 14-21 Days: No - Vaccine Status Have you recieved a Covid-19 vaccination: Yes 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 - Vaccination Dates Date of 2cond Vaccination (if applicable): unk Dates if Unknown: unk - Review of Systems Constitutional: No Symptoms, No Fever, No Chills Eyes: No Symptoms Ears, Nose, & Throat: No Symptoms Respiratory: No Symptoms, No Cough, No Dyspnea Cardiac: No Symptoms, No Chest Pain, No Edema, No Syncope Abdominal/Gastrointestinal: No Symptoms, No Abdominal Pain, No Nausea, No Vomiting, No Diarrhea Genitourinary Symptoms: No Symptoms, No Dysuria Musculoskeletal: No Symptoms, No Back Pain, No Neck Pain Skin: No Symptoms, No Rash Neurological: No Symptoms, No Dizziness, No Focal Weakness, No Sensory Changes Psychological: No Symptoms Endocrine: No Symptoms Hematologic/Lymphatic: No Symptoms Immunological/Allergic: No Symptoms All Other Systems: Reviewed and Negative - Past Medical History Pertinent Past Medical History: Yes Neurological History: No Pertinent History ENT History: No Pertinent History Cardiac History: Hypertension Respiratory History: No Pertinent History Endocrine Medical History: No Pertinent History Musculoskeletal History: No Pertinent History GI Medical History: No Pertinent History History: No Pertinent History Psycho-Social History: No Pertinent History Male Reproductive Disorders: No Pertinent History - Past Surgical History Past Surgical History: No Neuro Surgical History: No Pertinent History Cardiac: No Pertinent History Respiratory: No Pertinent History Gastrointestinal: No Pertinent History Genitourinary: No Pertinent History Musculoskeletal: No Pertinent History Male Surgical History: No Pertinent History Other Surgical History: Oral - Social History Smoking Status: Current every day smoker How long have you smoked: 16 years Exposure to second hand smoke: Yes Drug Use: none Patient Lives Alone: No - Nursing Vital Signs Nursing Vital Signs: Initial Vital Signs Temperature 97.8 F 10/21/22 18:06 Pulse Rate 103 H 10/21/22 18:06 Respiratory Rate 17 10/21/22 18:06 Blood Pressure 119/63 10/21/22 18:06 O2 Sat by Pulse Oximetry 94 L 10/21/22 18:06 Pain Scale Pain Intensity 5 - Physical Exam General Appearance: no apparent distress, alert Eye Exam: PERRL/EOMI, eyes nml inspection Ears, Nose, Throat Exam: normal ENT inspection, TMs normal, pharynx normal, moist mucous membranes Neck Exam: normal inspection, non-tender, supple, full range of motion Respiratory Exam: normal breath sounds, lungs clear, No respiratory distress Cardiovascular Exam: regular rate/rhythm, normal heart sounds, normal peripheral pulses Gastrointestinal/Abdomen Exam: soft, normal bowel sounds, No tenderness, No mass Male Genitalia Exam: normal genitalia, other (Right testicle is enlarged firm and somewhat tender. Overlying soft tissue intact) Back Exam: normal inspection, normal range of motion, No CVA tenderness, No vertebral tenderness Extremity Exam: normal inspection, normal range of motion, pelvis stable Neurologic Exam: alert, oriented x 3, cooperative, normal mood/affect, nml cerebellar function, nml station & gait, sensation nml, No motor deficits Skin Exam: normal color, warm, dry, No rash Lymphatic Exam: No adenopathy SpO2 Interpretation: normal SpO2: 94 O2 Delivery: Room Air - Course Nursing assessment & vital signs reviewed: Yes Ordered Tests: Active Orders 24 hr Category Date Time Status IV Insertion STAT Care 10/21/22 19:19 Active TESTICLE [US] Stat Exams 10/21/22 19:15 Completed CULTURE,URINE Stat Lab 10/21/22 19:30 Received UA W/RFX CULTURE Stat Lab 10/21/22 19:30 Completed Medication Summary Generic Name Dose Route Start Last Admin Trade Name Freq PRN Reason Stop Dose Admin Doxycycline Hyclate 100 mg 10/21/22 22:00 10/21/22 20:56 Doxycycline Hyclate 100 Mg Tablet PO 11/20/22 21:59 100 mg BID PETE Administration Discontinued Medications Generic Name Dose Route Start Last Admin Trade Name Freq PRN Reason Stop Dose Admin Ceftriaxone Sodium 1,000 mg 10/21/22 20:49 10/21/22 20:54 Ceftriaxone Sodium 1000 Mg Inj Vial IM 10/21/22 20:50 Not Given STAT ONE Ceftriaxone Sodium/Dextrose 1 g in 50 mls @ 100 mls/hr 10/21/22 20:54 10/21/22 21:26 Rocephin 1 Gm-D5w 50 Ml Bag IV 10/21/22 21:23 Infused STAT STA Infusion Ceftriaxone Sodium/Dextrose Confirm 10/21/22 20:53 Rocephin 1 Gm-D5w 50 Ml Bag Administered 10/21/22 20:54 Dose 1 g in 50 mls @ ud IV .STK-MED ONE Ketorolac Tromethamine 30 mg 10/21/22 19:17 10/21/22 19:18 Ketorolac Tromethamine 30 Mg/Ml Inj IM 10/21/22 19:18 Not Given STAT ONE Ketorolac Tromethamine 30 mg 10/21/22 19:19 10/21/22 19:21 Ketorolac Tromethamine 30 Mg/Ml Inj IV 10/21/22 19:20 30 mg STAT ONE Administration Ketorolac Tromethamine Confirm 10/21/22 19:20 Ketorolac Tromethamine 30 Mg/Ml Inj Administered 10/21/22 19:21 Dose 30 mg .ROUTE .STK-MED ONE Lab/Rad Data: Laboratory Results 10/21/22 10/21/22 Range/Units Unknown 19:30 Urinalys Dipstick Clnc MAIN LAB Urine Color YELLOW (YELLOW) Urine Appearance TURBID A (CLEAR) Urine pH 5.5 (5-6) Ur Specific [place] 1.025 (1.005-1.025) POC Urine Protein Conf NEGATIVE (Negative) Urine Ketones NEGATIVE (NEGATIVE) Urine Nitrite POSITIVE A (NEGATIVE) Urine Bilirubin NEGATIVE (NEGATIVE) Urine Urobilinogen 0.2 (0-1) mg/dL Urine Leukocytes MODERATE A (NEGATIVE) Urine WBC (Auto) >100 A (0-5) /HPF Urine RBC (Auto) 11-15 A (0-2) /HPF U Epithel Cells (Auto) NONE (FEW) /HPF Urine Bacteria (Auto) FEW A (NEGATIVE) /HPF Urine RBC SMALL A (0-5) Ford/ul Urine Mucus (Auto) MODERATE A (NEGATIVE) /HPF Ur Culture Indicated? YES Urine Glucose NEGATIVE (NEGATIVE) mg/dL Chlamydia DNA Probe NOT DETECTED (NEGATIVE) N.gonorrhoeae DNA Probe NOT DETECTED (NEGATIVE) - Progress Progress: improved Progress Note: Patient reassessed. Pain improved. Vital stable. Patient received a dose of Rocephin as well as doxycycline in our ED. A prescription for doxycycline and ciprofloxacin was was forwarded to patient's pharmacy. Patient has both epididymal orchitis as well as a UTI. Patient understands importance of follow- up. Patient agrees to follow-up with a primary care doctor within 48 hours for evaluation. He voices no other complaints or concerns at this time.Claim 10/21/22 22:08 Portions of this note were created with voice recognition technology. There may be grammatical, spelling, punctuation or sound alike errors Counseled pt/family regarding: lab results, diagnosis, need for follow-up, rad results - Departure Departure Disposition: Home Clinical Impression: Orchitis and epididymitis, UTI (urinary tract infection), Anxiety, Epididymal c yst, Hydrocele, right Condition: Stable Critical Care Time: No Referrals: AMBROSE MORRISSEY [Primary Care Provider] - Follow up/PCP as directed Instructions: Urinary Tract Infection, Adult (DC), Epididymitis (DC) Additional Instructions: Discharge/Care Plan HILDA SALVADOR was seen on 10/21/22 in the Emergency Room. The patient was counseled regarding Diagnosis,Lab results, Imaging studies, need for follow up and when to return to the Emergency Room. Prescriptions given: Discharge Note I have spoken with the patient and/or caregivers. I have explained the patient's condition, diagnosis and treatment plan based on the information available to me at this time. I have answered the patient's and/or caregiver's questions and addressed any concerns. The patient and/or caregivers have as good understanding of the patient's diagnosis, condition and treatment plan as can be expected at this point. The vital signs have been stable. The patient's condition is stable and appropriate for discharge from the emergency department. The patient will pursue further outpatient evaluation with the primary care physician or other designated or consulting physician as outlined in the discharge instructions. The patient and/or caregivers are agreeable to this plan of care and follow-up instructions have been explained in detail. The patient and/or caregivers have received these instruction. The patient/and or caregivers are aware that any significant change in condition or worsening of symptoms should prompt an immediate return to this or the closest emergency department or call 911. Prescriptions: Ciprofloxacin [Cipro 500 MG] 500 mg PO BID #14 tablet Doxycycline Hyclate 100 mg [Vibramycin 100 MG] 100 mg PO BID #14 tab
[2022-10-21] MEDS ORDERED: Vibramycin 100 MG PO SCH (22:00)
[2022-10-22] MEDS ORDERED: Cipro 500 MG PO SCH (10:00)
== END 2022-10-21 22:10 | disposition home or self-care (01) ==
LOC: ED 17:27
DX: N45.3 Epididymo-orchitis (principal); N39.0 Urinary tract infection, site not specified; F41.9 Anxiety disorder, unspecified; N50.3 Cyst of epididymis; N43.3 Hydrocele, unspecified; N50.811 Right testicular pain; R10.2 Pelvic and perineal pain; R30.0 Dysuria; R35.0 Frequency of micturition; E11.9 Type 2 diabetes mellitus without complications; I10 Essential (primary) hypertension; Z79.84 Long term (current) use of oral hypoglycemic drugs; Z79.899 Other long term (current) drug therapy; Z72.0 Tobacco use
CPT/HCPCS: 36000; 76870; 81015; 87077; 87086; 87186; 87491; 87591; 96365; 96374; 99284; J0696; J1885; A9270-GY